=== PATIENT | female | born 1940 | race Caucasian/White ===

== ENCOUNTER 2016-12-15 17:45 | Inpatient (IN) | payer OTHER, BC ==
[~2016-12-15] VITALS: Ht 162.6 cm; Wt 59.0 kg
--- NOTE | ~2016-12-15 | 2DMMODE ---
[facility] [address] [address] 2 D/M-MODE ECHOCARDIOGRAM Name: ANNA MUNGUIA Room #: 427-P ADM IN .R.#: [id number] Admission: 12/15/16 Attend Phys: Jesus Noble MD Discharge: Date of : 38 Date of Service: 12/16/16 1538 Report #: [id number] THIS REPORT FOR: //name// APPROVED REPORT Study performed: 12/16/2016 14:36:26 EXAM: Comprehensive 2D, Doppler, and color-flow Echocardiogram Patient Location: Echo lab Room #: 427 Status: routine Other Information Study Quality: Adequate Indications Syncope Hx: HTN 2D Dimensions RVDd: 26.06 mm LVEF(%): 60.81 (>50%) IVSd: 10.96 (7-11mm) LVOT Diam: 18.70 (18-24mm) LVDd: 36.12 mm PWd: 10.17 (7-11mm) LVDs: 24.63 (25-40mm) Aortic Root: 30.56 mm Schmidt's LVEF: 60.81 % Volumes Left Atrial Volume (Systole) Single Plane 4CH: 27.92 mL Single Plane 2CH: 19.94 mL LA ESV Index: 16.00 mL/m2 Aortic Valve AoV Peak Van.: 1.42 m/s AO Peak Gr.: 8.08 mmHg LVOT Max P.83 mmHg LVOT Max V: 1.10 m/s JUAN M Vmax: 2.12 cm2 Mitral Valve E/A Ratio: 0.6 MV Decel. Time: 229.21 ms MV E Max Van.: 0.68 m/s MV A Van.: 1.20 m/s MV PHT: 66.47 ms [facility] [place] [address] 2 D/M-MODE ECHOCARDIOGRAM Name: ANNA MUNGUIA Room #: 427-P [facility] IN M.R.#: [id number] Admission: 12/15/16 Attend Phys: Jesus Noble MD Discharge: Date of : 38 Date of Service: 12/16/16 1538 Report #: [id number] IVRT: 89.97 ms Pulmonary Valve PV Peak Van.: 0.86 m/s PV Peak Gr.: 2.99 mmHg Pulmonary Vein P Vein S: 0.62 m/s P Vein A: 0.32 m/s P Vein D: 0.33 m/s P Vein A Dur.: 121.1 msec P Vein S/D Ratio: 1.88 Tricuspid Valve TR Peak Van.: 2.69 m/s RAP Estimate: 5.00 mmHg TR Peak Gr.: 29.04 mmHg PA Pressure: 34.00 mmHg Left Ventricle The left ventricle is normal size. There is normal LV segmental wall motion. There is normal left ventricular wall thickness. Left ventricular systolic function is normal. LVEF is 60-65%. Mild diastolic dysfunction is present (impaired relaxation pattern). Right Ventricle The right ventricle is normal size. The right ventricular systolic function is normal. Atria The left atrium size is normal. The right atrium size is normal. Aortic Valve The aortic valve is not well visualized but appears grossly normal in structure. No aortic regurgitation is present. There is no aortic valvular stenosis. Mitral Valve The mitral valve is normal in structure. Mild mitral annular calcification. Mild mitral regurgitation. Tricuspid Valve The tricuspid valve is normal in structure. There is mild tricuspid regurgitation. The right atrial pressure is estimated at 5 mmHg. There is mild pulmonary hypertension with an estimated PAP of 34mmHg. Pulmonic Valve [address] [address] 2 D/M-MODE ECHOCARDIOGRAM Name: ANNA MUNGUIA Room #: 427-P [facility] IN [facility]#: [id number] Admission: 12/15/16 Attend Phys: Jesus Noble MD Discharge: Date of : 38 Date of Service: 12/16/16 1538 Report #: [id number] Pulmonic valve is not well visualized. Great Vessels The aortic root is normal in size. Ascending aorta is not well visualized. IVC is normal in size and collapses >50% with inspiration. Pericardium There is no pericardial effusion. <Conclusion> The left ventricle is normal size. Left ventricular systolic function is normal. Mild diastolic dysfunction is present (impaired relaxation pattern). The right ventricle is normal size. The left atrium size is normal. The aortic valve is not well visualized but appears grossly normal in structure. Mild mitral regurgitation. There is mild tricuspid regurgitation. The right atrial pressure is estimated at 5 mmHg. There is mild pulmonary hypertension with an estimated PAP of 34mmHg. <ELECTRONICALLY SIGNED> By: Mao Frias MD 12/16/16 1538 1538 1538 Mao Frias MD /INF
--- NOTE | ~2016-12-15 | EKG ---
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
--- NOTE | ~2016-12-15 | EEG ---
[facility] [place] [address] ELECTROENCEPHALOGRAM Name: ANNA MUNGUIA Room #: 427-P [facility] IN M.R.#: [id number] Admission: 12/15/16 Attend Phys: Jesus Noble MD Discharge: 12/16/16 Date of : 38 Report #: [id number] THIS REPORT FOR: //name// CC: Jesus Calhoun DATE OF SERVICE: 12/16/2016 REASON FOR STUDY: This patient is being evaluated for syncope. INTERPRETATION: EEG was done by placing the electrodes by standard 10-20 system of electrode placement. Both referential and sequential montages were used for recording. Background activity in this patient's EEG is about 11 Hz and 40 microvolts. This patient went to sleep and that is associated with bilaterally symmetrical sleep spindle and vertex sharp waves. Photic stimulation is unremarkable. Throughout the record, no active epileptiform activity was noticed. IMPRESSION: This patient's electroencephalogram is within normal limits. It might be mentioned that electroencephalogram can be normal in a patient with a seizure disorder. Thank you very much for this referral. <ELECTRONICALLY SIGNED> By: Yoni Zelaya MD 12/22/16 0825 0742 [id number] Yoni Zelaya MD /nt
[2016-12-15 17:48] VITALS: BP 129/68
[2016-12-15] MEDS ORDERED: MELOXICAM7.5 MG PO (18:59)
[2016-12-15] MEDS ORDERED: NORVASC2.5 MG PO (18:59)
[2016-12-15] MEDS ORDERED: PROTONIX 20 MG20 M1 PO (18:59)
[2016-12-15 19:46] LABS: URINE BILIRUBIN NEGATIVE (Negative); URINE BLOOD NEGATIVE (Negative); URINE COLOR YELLOW; URINE GLUCOSE-RANDOM* NEGATIVE (Negative); URINE KETONES TRACE (Negative); URINE LEUKOCYTES-REFLEX 1+ (Negative); URINE PROTEIN (DIPSTICK) NEGATIVE (Negative); URINE SPECIFIC GRAVITY 1.025 (1.003-1.035)
[2016-12-15 19:47] LABS: ABSOLUTE NEUTROPHILS 4.9 thou/uL (1.4-8.2); BASOPHILS 0.5 % (0.0-2.0); EOSINOPHILS 3.3 % (0.0-3.0); HEMATOCRIT 41.8 % (37.0-47.0); HEMOGLOBIN 14.1 gm/dL (12.0-15.0); LYMPHOCYTES 26.6 % (24.0-44.0); MANUAL DIFF NO; MCH 30.7 pg (26.0-34.0); MCHC 33.8 g/dL (28.0-37.0); MCV 90.8 fL (80.0-100.0); MONOCYTES 5.9 % (1.0-8.0); PLATELET COUNT 204 thou/uL (150-400); POLYS 63.7 % (36.0-66.0); RDW 13.7 % (10.5-14.5); WBC 7.7 thou/uL (4.0-11.0)
[2016-12-15 19:50] LABS: CALCIUM 9.2 mg/dL (8.5-10.1); CREATININE 1.1 mg/dL (0.6-1.0); POTASSIUM 4.8 mmol/L (3.5-5.1)
[2016-12-15 19:56] LABS: ALBUMIN 3.8 g/dL (3.4-5.0); MAGNESIUM 1.9 mg/dL (1.8-2.4); TOTAL BILIRUBIN 0.5 mg/dL (<0.1-1.0); TOTAL PROTEIN 7.4 g/dL (6.4-8.2)
[2016-12-15 19:59] LABS: SQUAMOUS 0-3 Few /LPF (0-3)
[2016-12-15 20:00] LABS: CASTS None Seen /LPF (None Seen); CRYSTALS None Seen /LPF (None Seen); URINE RBC None Seen /HPF (0-2)
[2016-12-15 21:59] VITALS: BP 137/68
[2016-12-15 22:02] VITALS: BP 137/68
[2016-12-15 23:53] VITALS: BP 165/95
[2016-12-16] VITALS (7 sets, daily range): BP systolic 110–167; BP diastolic 64–103
[2016-12-16] MEDS ORDERED: LEVAQUIN 500 M500 M2 PO (16:22)
[2016-12-16] MEDS ORDERED: ASPIR 8181 MG PO (16:22)
[2016-12-16 19:09] LABS: PROLACTIN 17.4 ng/mL (4.8-23.3)
[2016-12-17 05:11] LABS: GLYCOHEMOGLOBIN (HGB A1C) 4.9 % (4.8-5.6)
[2016-12-20 01:08] LABS: ALPHA TOCOPHEROL 12.8 mg/L (6.5-21.5)
== END 2016-12-16 17:02 | disposition home or self-care (01) | DRG 690 ==
LOC: ER 17:45 → 4E 21:12 → EROBS 21:12 → 4E 22:04
PROVIDERS: Emergency Medicine; Psychiatry & Neurology Neurology
DX: N39.0 Urinary tract infection, site not specified (principal); I10 Essential (primary) hypertension; K21.9 Gastro-esophageal reflux disease without esophagitis; Z79.899 Other long term (current) drug therapy; Z88.0 Allergy status to penicillin; Z82.49 Family history of ischemic heart disease and other diseases of the circulatory system; Z80.0 Family history of malignant neoplasm of digestive organs; Z82.3 Family history of stroke
CPT/HCPCS: 10183